=== PATIENT | female | born 1930 | race African-American/Black ===

== ENCOUNTER 2017-07-27 13:15 | Outpatient (CLI) | payer MEDICARE ==
--- NOTE | 2017-07-27 15:09 | RAD ---
RADIOGRAPH CHEST 2 VIEWS: HISTORY: An 86-year-old female with bronchitis. FINDINGS: The thoracic aorta is tortuous and ectatic. There is no evidence of air space density, pneumothorax, or pulmonary edema. There is no cardiomegaly or pleural effusion. IMPRESSION: 1) No acute cardiopulmonary findings. 2) Ectasia of thoracic aorta. angel [] POS: JOVON
== END 2017-07-27 13:16 | disposition home or self-care (01) ==
LOC: RAD 13:15
PROVIDERS: ATTEND Physician Assistant
DX: J40 Bronchitis, not specified as acute or chronic (principal); I77.810 Thoracic aortic ectasia
CPT/HCPCS: 71046

== ENCOUNTER 2017-12-24 13:25 | Observation (INO) | payer MEDICARE, MEDICAID ==
[2017-12-24] MEDS ORDERED: ISOVUE-370 76%-LOCM 1 ML ONE (13:37)
[2017-12-24 15:01] LABS: CKMB 0.7 ng/mL (0-6.6); Troponin I Less than 0.010 ng/mL (< 0.028)
[2017-12-24] MEDS ORDERED: Senokot 8.6 MG TAB PO PRN (16:53)
[2017-12-24] MEDS ORDERED: Ondansetron HCl/PF 4 MG/2 ML Vial IVP PRN (16:53)
[2017-12-24] MEDS ORDERED: Acetaminophen 325 MG TAB PO PRN (16:53)
[2017-12-24] MEDS ORDERED: Calcium Carbonate 500 MG ChewTAB PO PRN (16:53)
[2017-12-24] MEDS ORDERED: HYDROcodone/Acetaminophen 5/325 mg Tablet PO PRN (16:53)
--- NOTE | 2017-12-24 17:02 | HP ---
DATE OF ADMISSION: 12/24/2017 CHIEF COMPLAINT: Chest pain. HISTORY OF PRESENT ILLNESS: This is an 87-year-old resident of [place]. She had a sudden onset of chest pain, which is more in the epigastric area and she went to [facility] where she was se en by ER physician, had an initial EKG, which was unremarkable and had initial troponin, which was ne gative and the patient was transferred to [facility] for further evaluation. The patient localize s the pain in the left upper quadrant of the chest associated with nausea and vomiting. She has been having problems with constipation and has not had bowel movement for the past few days. She complai ns of pain of 7/10 in intensity, but right now the pain is completely gone. The patient has a known history of coronary artery disease, history of hypertension, all of them are well controlled. The blanca blevins has severe dementia, that is why unable to get any history at this time other than the ones men tioned above, which is most from the ER physicians. PAST MEDICAL HISTORY: 1. History of severe arthritis. 2. History of severe dementia. 3. History of hypertension. PAST SURGICAL HISTORY: Unable to obtain surgical history at this time. SOCIAL HISTORY: The patient lives on her own according to her, but there is no family member accompadelso diallo at this time and she is not a known smoker. She denies alcohol. No history of illicit drug us e. FAMILY HISTORY: Has been reviewed from the previous chart, otherwise unremarkable. REVIEW OF SYSTEMS: As stated above, unable to determine as the patient has severe dementia, unable t o give much history at this time. ALLERGIES: No known drug allergies. HOME MEDICATIONS: None has been listed. PHYSICAL EXAMINATION: VITAL SIGNS: Blood pressure 138/88, heart rate is 80, saturation is 98% on room air. GENERAL: The patient is moderately built and moderately nourished, does not appear to be in acute di stress at this time. The patient is alert, but completely disoriented. HEENT: Atraumatic, normocephalic. PERRLA. Extraocular muscles are intact. Oral mucosa is pink and moist. CARDIOVASCULAR: S1, S2 normal. No murmurs, rubs or gallops. LUNGS: Bilateral air entry was equal. No wheezing, no crackles. ABDOMEN: Soft, nontender, no guarding, no rebound tenderness. Bowel sounds normal. MUSCULOSKELETAL: No calf tenderness. No pedal edema. No joint tenderness. No joint swelling. SKIN: No cyanosis, no erythema, no rash, no pallor. NEUROLOGIC: Cranial nerve examination II-XII intact. No focal deficits are noted at this time. PSYCHIATRIC: No signs of suicidal ideation and no signs of johnny. Severe depression with low moods as noted. LABORATORY DATA: WBC 5.1, hemoglobin is 9.9, hematocrit 31.1, platelets are 189,000. Sodium is 140, potassium 4.1, chloride 106, BUN 14, creatinine 0.8. Troponin 0.010. BNP 69.2. Urine was not done at this time. A chest x-ray has been done at [facility], which showed no acute process. EKG has been reviewed, was unremarkable. ASSESSMENT: 1. Acute coronary syndrome. 2. Acute epigastric pain. 3. Chronic constipation. 4. Severe dementia. 5. History of hypertension. PLAN: 1. Plan is to closely monitor this patient with serial troponins. Start the patient on aspirin at t his time and a beta-dianna and atorvastatin. Plan to do a nuclear stress test in the morning. She is high risk as no history could be obtained at this time and the patient looks to be very confused, but in pain. 2. The patient has evidence of severe dementia. We will closely monitor this patient and we will fi cristopherre out her family members to inform that the patient is here. 3. The patient complains of abdominal pain and we will start the patient on lactulose 20 g for const ipation. 4. The patient has evidence of severe malnutrition and she is cachectic and severely malnourished. We will consult dietitian for recommendations for diet. 5. Hypertension. We will closely monitor. No medications at this time. Plan to keep the blood pre ssures less than 135/85. 6. Deep venous thrombosis prophylaxis. Lovenox. I spent 70 minutes with this patient.
[2017-12-24 17:46] LABS: Troponin I Less than 0.010 ng/mL (< 0.028)
[2017-12-24 18:56] LABS: Bilirubin Negative (Negative); Blood, Urine Trace (Negative); Clarity CLEAR (Clear); Glucose, Urine (Dipstick) Negative (Negative); Leukocyte Small (Negative); Nitrite Negative (Negative); Protein, Urine (Dipstick) Negative (Neg-Trace); Specific Gravity, Urine 1.007 (1.002-1.036); pH, Urine 7.5 (5.0-9.0)
[2017-12-24 19:01] LABS: Bacteria/HPF None Seen HPF (None Seen); Hyaline Casts/LPF 0-3 HYALINE CAST LPF (0-3 Hyaline); RBC/HPF 0-3 HPF (0-3); Squamous Epithelial 0-3 HPF (0-3)
[2017-12-24] MEDS ORDERED: Famotidine/PF 20 mg/2ml Vial SLOW IVP SCH (21:00)
[2017-12-24 21:09] LABS: Troponin I Less than 0.010 ng/mL (< 0.028)
[2017-12-24] MEDS: Carvedilol 3.125 MG TAB PO SCH (22:15)
--- NOTE | 2017-12-24 23:20 | CT ---
CT ABDOMEN AND PELVIS WITH IV CONTRAST 12/24/17 HISTORY: Generalized abdominal pain and weight loss. FINDINGS: Vascular calcifications seen in the coronary arteries as well as involving the abdominal aorta and il iac arteries. The abdominal aorta is tortuous. There is dependent atelectasis at each lung base. No pulmonary nodule or mass is seen. There is mild intra and extrahepatic biliary ductal dilatation of uncertain etiology. Liver otherwise has a normal CT appearance. Splenic granuloma is present. There is subcentimeter too small to characterize hypodense lesions in e ach kidney. Larger exophytic hypodense lesion inferior pole left kidney demonstrating fluid attenuati on and measuring 4.9 cm is consistent with a cyst. There is a smaller 1.2 cm hypodense lesion in the superior pole left kidney, also likely related to a cyst. A 1.5 cm left adrenal hypodense lesion is present but cannot be further characterized on this post en hanced CT study. The right adrenal gland, opacified bowel, urinary bladder, and uterus demonstrate a normal CT appeara nce for the patient's age. There is a 3.9 cm x 2.3 cm hypodense cystic appearing structure seen within the posterior left pelvis . This is adjacent to a loop of small bowel and the colon. The exact etiology is uncertain. Could pot entially represent cystic lesion associated with the ovary, but there is intervening bowel between th e uterus and this cystic structure and the exact etiology is uncertain. A remote hematoma in this r egion is a possibility, but the exact etiology is uncertain. This is overall nonspecific. The appendix is visualized and normal in caliber. There is a small to moderate amount of retained fecal material seen in the colon. The uterus and left adnexa are grossly within normal limits. Degenerative changes are seen in the spine. Osteopenia is present. IMPRESSION: 1. Intra and extrahepatic biliary ductal dilatation of uncertain etiology. 2. Left adrenal lesion which cannot be further characterized on this exam. A followup nonenhance d CT scan exam is suggested. 3. Left renal cyst with subcentimeter too small to characterize hypodense lesions in each kidney . 4. Nonspecific hypodense cystic lesion within the posterior right pelvis. There is an intervenin g loop of bowel between the cystic structure and the uterus, although this could potentially represen t a cystic lesion involving the patient's right ovary. However, this is overall nonspecific and of un certain etiology. 5. No CT evidence of appendicitis. 6. Small amount of retained fecal material seen throughout the colon. POS: UNRULY
[2017-12-25 05:07] LABS: #Basophils 0.1 thou/uL (0.0-0.2); #Eosinphils 0.1 thou/uL (0.0-0.7); #Lymphocytes 1.6 thou/uL (1.20-3.40); #Monocytes 0.4 thou/uL (0.11-0.59); #Neutrophils 2.9 thou/uL (1.40-6.50); %Eosinophils 2.8 % (0.0-10.0); %Lymphocytes 30.7 % (21.0-51.0); %Monocytes 8.5 % (0.0-10.0); Hemoglobin 9.9 g/dL (12.0-16.0); Mean Corpuscular HGB CONC 33.2 g/dL (32.0-36.0); Mean Corpuscular Hemoglobin 31.3 pg (27.0-31.0); Mean Corpuscular Volume 94.2 fL (78.0-98.0); Platelet Count 187 thou/uL (130-400); RBC Distribution Width 12.1 % (11.5-14.5); Red Blood Cell (RBC) Count 3.15 mill/uL (4.20-5.40); White Blood Cell (WBC) Count 5.1 thou/uL (4.8-10.8)
[2017-12-25 05:19] LABS: Anion Gap 13 mmol/L (10-20); BUN (Urea Nitrogen) 10 mg/dL (9.8-20.1); Calc. Creatinine Clearance 41 mL/min (70-130); Carbon Dioxide 24 mmol/L (23-31); Cardiac Risk 3.8 (Less than 4.5); Chloride 103 mmol/L (98-107); Cholesterol 192 mg/dl (< 200 Desired); Estimated GFR-MDRD Greater than 90; Glucose 84 mg/dL (83-110); HDL Cholesterol 50 mg/dL (>60 Neg Risk); LDL Cholesterol, Calculated 129 mg/dL; Potassium 3.6 mmol/L (3.5-5.1); Sodium 136 mmol/L (136-145); Triglycerides 66 mg/dL (Less than 150)
[2017-12-25] MEDS: Carvedilol 3.125 MG TAB PO SCH (07:50)
[2017-12-25 08:26] VITALS: BP 129/63; TEMP 97.4
[2017-12-25] MEDS ORDERED: Enoxaparin Sodium 40 MG/0.4 ML SYRINGE SC SCH (09:00)
[2017-12-25] MEDS ORDERED: Aspirin 325 MG TAB PO SCH (09:00)
[2017-12-25] MEDS ORDERED: ADENOSINE 60 MG/20 ML VIAL ONE (10:43)
--- NOTE | 2017-12-25 14:44 | NM ---
CARDIAC SPECT: HISTORY: An 87-year-old female with chest pain, hypertension, and coronary artery disease. TECHNIQUE: A myocardial perfusion scan was performed using the single-isotope 1-day protocol with Technetium 99m sestamibi. Nine mCi were injected intravenously for the rest exam followed by 32 mCi for the stress study. Pharmacologic stress with adenosine is monitored and interpreted by Dr. German. FINDINGS: Homogeneous tracer distribution is seen in the myocardial segments on stress and rest images without fixed or reversible defects. GATED SPECT LVEF: 84%. WALL MOTION EXAM: Normal. IMPRESSION: Normal myocardial perfusion scan. POS: JOVON
[2017-12-25 14:57] VITALS: BMI 15.7
--- NOTE | 2017-12-25 19:39 | DIS ---
DATE OF ADMISSION: 12/24/2017 DATE OF DISCHARGE: 12/26/2007 ADMITTING DIAGNOSIS: Acute chest pain. DISCHARGE DIAGNOSIS: Acute chest pain. SECONDARY DIAGNOSES: 1. Severe protein calorie malnutrition. 2. Acute weight loss. 3. Chronic constipation. HISTORY OF PRESENT ILLNESS AND HOSPITAL COURSE: In brief, this is an 87-year-old resident of [facility]. She had a sudden onset of chest pain and with epigastric discomfort, she went to [place] and had an initial EKG which was unremarkable and initial troponin was negative. The patient was transferred to [facility] for further evaluation. The patient noted to have severe weight loss a nd she was nauseated. Her chest pain was gone by the time I have seen the patient, but she scooby d that the pain was 7/10 in intensity. Her serial troponins were ordered overnight and no troponins elevation. We ordered a significant stress test, which came back negative. The following [facility] any [facility] and she was very stable, but CT abdomen was done to rule out any evidence of any reasons for sudden weight loss. There was a cystic lesion behind the right ovary whe re the patient is offered to get an ultrasound here, but she wanted to go home and wanted to follow u p with her primary care physician regarding doing an ultrasound for the cystic lesion and discussed t his with the patient's daughter and granddaughter. The patient is discharged home in stable condition. PHYSICAL EXAMINATION: On day of discharge. VITAL SIGNS: Blood pressures are 129/63, heart rate of 61, respiratory rate is 18, saturation 98%. GENERAL: The patient is moderately built and moderately nourished, does not appear to be in acute di stress. CARDIOVASCULAR: S1, S2 normal. No murmurs, rubs or gallops. LUNGS: Bilateral air entry was equal. No wheezing, no crackles. ABDOMEN: Soft, nontender. No guarding or rebound tenderness. Bowel sounds normal. DISCHARGE MEDICATIONS: 1. Amlodipine 10 mg p.o. daily. 2. Ranitidine 150 mg p.o. daily. 3. Senokot 2 tablets p.o. at bedtime as needed. DISCHARGE INSTRUCTIONS: 1. Continue activity as tolerated. Advised to follow up with primary care physician in 1 week to ge t the ultrasound for her pelvis to rule out cystic mass behind the right ovary. 2. Advised to return back to the ER if the patient has any further chest pains. 3. Continue regular diet. 4. Continue activity as tolerated. I spent 35 minutes with the patient at discharge on the day of discharge.
--- NOTE | 2017-12-29 09:12 | STRESS ---
Acquisition Time: 2017-12-25 10:43:01 Total Exercise Time: 00:04:00 Test Indications: CHEST PAIN Medications: Protocol: ADENOSINE Max HR: 080 BPM 60% of Pred: 133 BPM Max BP: 138/060 mmHG Max Work Load: 1.0 METS RESTING EKG: NORMAL SINUS RHYTHM WITH 1 DEGREE AV BLOCK AT 63 BPM SYMPTOMS: CHEST PAIN APPROPRIATE BP RESPONSE FOR ADENOSINE ECTOPY: NONE EKG STRESS: NO SIGNIFICANT CHANGES INTERPRETATION: AWAIT NUCLEAR IMAGES FOR DEFINITIVE DIAGNOSIS Confirmed by CHINMAY SUE ([id number]), business editor IVON ATKINSON ([id number] on 12/29/2017 9:11:53 AM Referred By: Confirmed By:CHINMAY SUE
--- NOTE | 2017-12-29 14:51 | EKG ---
Test Reason : Blood Pressure : / mmHG Vent. Rate : 077 BPM Atrial Rate : 077 BPM P-R Int : 248 ms QRS Dur : 076 ms QT Int : 366 ms P-R-T Axes : 052 001 060 degrees QTc Int : 414 ms Sinus rhythm with 1st degree A-V block Low voltage QRS Borderline ECG Confirmed by HENRRY TALAVERA ([id number]), primer expeditor and drier KAYDEN ESPOSITO ([id number] on 12/29/2017 2:51:08 PM Referred By: Confirmed By:HENRRY TALAVERA
== END 2017-12-25 15:24 | disposition home or self-care (01) ==
LOC: ERS 13:25 → 2SW 15:18
PROVIDERS: ADMIT Family Medicine; ATTEND Family Medicine
DX: R07.9 Chest pain, unspecified (principal); R10.13 Epigastric pain; I25.10 Atherosclerotic heart disease of native coronary artery without angina pectoris; I10 Essential (primary) hypertension; F03.90 Unspecified dementia, unspecified severity, without behavioral disturbance, psychotic disturbance, mood disturbance, and anxiety; M19.90 Unspecified osteoarthritis, unspecified site; K59.09 Other constipation; E43 Unspecified severe protein-calorie malnutrition; Z68.1 Body mass index [BMI] 19.9 or less, adult; Z79.899 Other long term (current) drug therapy
CPT/HCPCS: 74177; 78452; 80048; 80061; 82553; 84484; 85025; 93005; 93017; 94760; 96372; 96374; 97139; 99285; A9500; G0378 ×2; 36415; 81003; 81015; J0153; J1650; S0028

== ENCOUNTER 2019-01-19 17:17 | Emergency (ER) | payer MEDICARE, OTHER ==
[2019-01-19 19:00] LABS: #Lymphocytes 1.3 thou/uL (1.20-3.40); #Monocytes 0.5 thou/uL (0.11-0.59); %Basophils 0.8 % (0.0-1.0); %Eosinophils 0.8 % (0.0-10.0); %Monocytes 9.9 % (0.0-10.0); %Neutrophils 61.5 % (42.0-75.0); Mean Corpuscular HGB CONC 32.9 g/dL (32.0-36.0); Mean Corpuscular Hemoglobin 31.5 pg (27.0-31.0); Mean Corpuscular Volume 95.5 fL (78.0-98.0); Mean Platelet Volume 8.7 fL (7.4-10.4); Platelet Count 229 thou/uL (130-400); RBC Distribution Width 11.8 % (11.5-14.5); White Blood Cell (WBC) Count 4.9 thou/uL (4.8-10.8)
[2019-01-19 19:03] LABS: Bilirubin Negative (Negative); Blood, Urine Negative (Negative); Clarity Clear (Clear); Glucose, Urine (Dipstick) Normal (Negative); Leukocyte Negative Leu/uL (Negative); Nitrite Negative (Negative); Protein, Urine (Dipstick) Negative (Neg-Trace); Urobilinogen Normal mg/dL (Less than 2)
--- NOTE | 2019-01-19 19:23 | CT ---
CT BRAIN WITHOUT CONTRAST: 01/19/19 HISTORY: Headache and pain in the left side of the face. FINDINGS: There are no previous exams for comparison. There are changes of cortical atrophy and chronic small vessel ischemic disease. The ventricular size is appropriate and the basilar cisterns patent. No evidence of acute infarct, hemorrhage, midline shift, or abnormal extra-axial fluid collections ar e seen. The bony calvarium is intact. The visualized paranasal sinuses and mastoid air cells are well aerated. IMPRESSION: No CT evidence of acute intracranial process. POS: OLMANA
[2019-01-19 19:32] LABS: ALT (SGPT) Less than 7 U/L (8-55); AST (SGOT) 14 U/L (5-34); Albumin 4.4 g/dL (3.4-4.8); Alkaline Phosphatase 56 U/L (40-150); Anion Gap 9 mmol/L (10-20); BUN (Urea Nitrogen) 14 mg/dL (9.8-20.1); Bilirubin, Total 0.6 mg/dL (0.2-1.2); CK (CPK) 76 U/L (29-168); Calc. Creatinine Clearance 0 mL/min (70-130); Carbon Dioxide 30 mmol/L (23-31); Chloride 102 mmol/L (98-107); Estimated GFR-MDRD 82; Globulin 3.3 g/dL (2.4-3.5); Glucose 97 mg/dL (83-110); Potassium 3.6 mmol/L (3.5-5.1); Protein, Total 7.7 g/dL (6.0-8.3); Sodium 137 mmol/L (136-145)
--- NOTE | 2019-01-21 12:12 | EKG ---
Test Reason : Blood Pressure : / mmHG Vent. Rate : 088 BPM Atrial Rate : 088 BPM P-R Int : 242 ms QRS Dur : 078 ms QT Int : 358 ms P-R-T Axes : 060 018 054 degrees QTc Int : 433 ms Sinus rhythm with 1st degree A-V block Low voltage QRS Borderline ECG Confirmed by COY IBARRA D.O. ([id number]), scientific publications editor KELLY MERCHANT ([id number]) on 01/21/2019 12:11:37 PM Referred By: FRED Confirmed By:COY IBARRA D.O.
== END 2019-01-19 20:43 | disposition home or self-care (01) ==
LOC: ERS 17:17
DX: R22.0 Localized swelling, mass and lump, head (principal); I10 Essential (primary) hypertension; Z79.899 Other long term (current) drug therapy
CPT/HCPCS: 36415; 70450; 80053; 81003; 82550; 83605; 84443; 85025; 85652; 86140; 87086; 93005; 94760